=== PATIENT | female | born 1935 | race Hispanic/Latino ===

== ENCOUNTER 2018-10-04 05:52 | Day surgery (SDC) | payer MEDICARE ==
[2018-10-01 13:47] VITALS: BP 138/82
[2018-10-01 13:57] LABS: BASOPHILS % (AUTO) 0.5 % (0.0-5.0); EOSINOPHILS % (AUTO) 2.3 % (0.0-8.0); HEMATOCRIT 34.2 % (36-48); LYMPHOCYTES % (AUTO) 20.4 % (21.0-51.0); MEAN CORPUSCULAR HEMOGLOBIN 30.8 pg (27.0-33.0); MEAN CORPUSCULAR HGB CONC 33.8 g/dL (32.0-36.0); MEAN CORPUSCULAR VOLUME 91.1 fL (79-99); MONOCYTES % (AUTO) 7.2 % (3.0-13.0); NEUTROPHILS % (AUTO) 69.6 % (40.0-77.0); PLATELET COUNT (AUTO) 305 K/uL (130-400); RED BLOOD CELL COUNT(AUTO) 3.76 MIL/uL (4.00-5.50); RED CELL DISTRIBUTION WIDTH 13.4 % (11.0-15.5); WHITE BLOOD COUNT (AUTO) 9.7 K/uL (4.8-10.8)
[2018-10-01 14:03] LABS: CREATININE 1.6 mg/dL (0.5-1.5); POTASSIUM 4.4 mmol/L (3.5-5.1)
[2018-10-01 14:19] LABS: INR 0.97 (0.85-1.15); PARTIAL THROMBOPLASTIN TIME 28.1 SEC (26.3-35.5); PROTHROMBIN TIME 10.2 SEC (9.6-11.6)
[2018-10-01 14:37] LABS: APPEARANCE,URINE Cloudy (CLEAR); BILIRUBIN,URINE Negative (NEGATIVE); COLOR,URINE Yellow (YELLOW); GLUCOSE, URINE (UA) Negative (NEGATIVE); KETONES,URINE Negative (NEGATIVE); LEUKOCYTE ESTERASE ,URINE Moderate (NEGATIVE); NITRATE,URINE Negative (NEGATIVE); OCCULT BLOOD,URINE Small (NEGATIVE); PROTEIN,URINE POS 1+ mg/dL (NEGATIVE)
[2018-10-01 14:59] LABS: BACTERIA,URINE Few /HPF (None Seen); RBC,URINE None Seen /HPF (0-1)
[2018-10-01 15:00] LABS: SQUAMOUS EPITHELIAL CELL,UR 0-2 /HPF (0-2)
--- NOTE | 2018-10-01 15:21 | NUR ---
ABNORMAL LABS REPORTED ABNORMAL LABS TO HENRY JOHNSON NP. NO HYDRATION, NO NEW ORDERS
[~2018-10-04] VITALS: Ht 152.4 cm; Wt 89.5 kg
[2018-10-04] VITALS (10 sets, daily range): BP systolic 106–156; BP diastolic 38–73
[~2018-10-04 05:52] MED LIST: BUME1TAB6 PO; GLIM2TAB3 PO; SIMV20TA6 PO; SITA100T12 PO; VERA120T13 PO
--- NOTE | 2018-10-04 06:25 | NUR ---
PRE-PROCEDURE RECEIVED FROM HOME TO DAY 15 FOR SCHEDULED RT AND LT HEART CATH. CONNECTED TO CONTINUOUS CARDIOPULMONARY MONITORING. AWAKE IN NO ACUTE DISTRESS. DENIES PAIN OR SOA. MURMUR AUSCULTATED. SIDE RAILS UP X2, BED IN LOWEST POSITION, CALL LIGHT W/IN REACH.
[2018-10-04] MEDS ORDERED: IOHEXOL-350 50ML VIAL IV ONE (07:11)
[2018-10-04] MEDS ORDERED: IOHEXOL 350 MG/ML 100ML INFUS..BTL IV ONE (07:11)
[2018-10-04] MEDS ORDERED: HEPARIN SODIUM 1000UNIT/ML 10ML VIAL ONE (07:11)
[2018-10-04] MEDS ORDERED: LIDOCAINE HCL 2% 20ML ONE (07:11)
[2018-10-04] MEDS ORDERED: NITROGLYCERIN 5 MG/ML 10 ML VIAL IV ONE (07:11)
--- NOTE | 2018-10-04 07:18 | NUR ---
PROCEDURE PT TRANSFERRED TO [facility] [employer] VIA BED BY MAAME JIANG RN. AWAKE IN NO ACUTE DISTRESS.
[2018-10-04] MEDS ORDERED: HYDRALAZINE HCL 20 MG/ML VIAL ONE (07:43)
[2018-10-04] MEDS ORDERED: SODIUM CHLORIDE 0.9% 1000ML 1,000 ML IV SCH (08:00)
[2018-10-04] MEDS ORDERED: GLUCAGON 1MG KIT 1 MG ML IM PRN (08:30)
[2018-10-04] MEDS ORDERED: DEXTROSE 50%-WATER 50 ML DISP.SYRIN IV PRN (08:30)
--- NOTE | 2018-10-04 08:42 | NUR ---
POST-PROCEDURE RECEIVED FROM MANAGEMENT TRAINEE MARKETING S/P RT AND LT HEART CATH VIA BED BY MAAME JIANG RN. CONNECTED TO CONTINUOUS CARDIOPULMONARY MONITORING. AWAKE IN NO ACUTE DISTRESS. CATH SITE W/O SIGNS OF BLEEDING, DRESSING CLEAN, DRY, AND INTACT; SITE SOFT, NON-TENDER. SIDE RAILS UP X2, BED IN LOWEST POSITION, CALL LIGHT W/IN REACH. REINFORCED TEACHING IN OCCITAN ON IMPORTANCE OF KEEPING RIGHT LEG STRAIGHT AND NOT TO MOVE, NOT RAISE HEAD AND UP AND DOWN. PT VERBALIZED UNDERSTANDING.
--- NOTE | 2018-10-04 11:45 | NUR ---
ACTIVITY UP TO CHAIR WITH ASSIST X2. TOLERATED W/O COMPLICATIONS. CATH SITE W/O SIGNS OF BLEEDING. DRESSING CLEAN, DRY, AND INTACT/SITE SOFT, NON-TENDER.
--- NOTE | 2018-10-04 14:45 | NUR ---
REPORT REPORT GIVEN TO DAGMAR CHILDS USING SBAR/VERBALIZED UNDERSTANDING. CATH SITE W/O SIGNS OF BLEEDING. SITE SOFT, NON-TENDER, DRESSING CLEAN, DRY, AND INTACT. PENDING DR. SANDHU CONSULT.
== END 2018-10-04 15:55 | disposition home or self-care (01) ==
LOC: DAH 05:52
PROVIDERS: ATTEND Internal Medicine Cardiovascular Disease
DX: I25.10 Atherosclerotic heart disease of native coronary artery without angina pectoris (principal); I35.0 Nonrheumatic aortic (valve) stenosis; I34.0 Nonrheumatic mitral (valve) insufficiency; I42.8 Other cardiomyopathies; E11.9 Type 2 diabetes mellitus without complications; I11.9 Hypertensive heart disease without heart failure; E78.5 Hyperlipidemia, unspecified; Z79.84 Long term (current) use of oral hypoglycemic drugs; Z79.899 Other long term (current) drug therapy; Z82.49 Family history of ischemic heart disease and other diseases of the circulatory system; Z83.3 Family history of diabetes mellitus
CPT/HCPCS: 36415; 71045; 80048; 81001; 82948 ×2; 85025; 85610; 85730; 93005; 93454; A4606; C1760; C1769; C1894 ×2; J0360; J1644; J3490 ×2; J7030; Q9965; Q9967 ×2

== ENCOUNTER 2019-10-20 20:53 | Emergency (ER) | payer MEDICARE ==
[~2019-10-20 20:53] MED LIST changes: +ACET-2247 PO; +ALBU8.5H8 IH; +ALPR0.5T PO; +ASCO500T10 PO; +ASPI-1026 PO; +ATOR20TA65 PO; +AUD IH; +BENZ-17 PO; -BUME1TAB6 PO; +BUME1TAB7 PO; +CEFD300C3 PO; +DOCU-116 PO; +FERR-82 PO; -GLIM2TAB3 PO; +GLIM2TAB30 PO; +INSU100I3 SQ; +METO25TA6 PO; +POTA20LI PO; -SIMV20TA6 PO; +TYL3 PO; +[UNRECOGNIZED DRUG - OTHER] PO
[2019-10-20 21:46] LABS: BASOPHILS % (AUTO) 0.3 % (0.0-5.0); EOSINOPHILS % (AUTO) 2.6 % (0.0-8.0); HEMATOCRIT 33.3 % (36-48); LYMPHOCYTES % (AUTO) 20.2 % (21.0-51.0); MEAN CORPUSCULAR HEMOGLOBIN 29.2 pg (27.0-33.0); MEAN CORPUSCULAR HGB CONC 31.5 g/dL (32.0-36.0); MEAN CORPUSCULAR VOLUME 92.5 fL (79-99); MONOCYTES % (AUTO) 8.4 % (3.0-13.0); NEUTROPHILS % (AUTO) 68.1 % (40.0-77.0); PLATELET COUNT (AUTO) 244 K/uL (130-400); RED CELL DISTRIBUTION WIDTH 13.8 % (11.0-15.5); WHITE BLOOD COUNT (AUTO) 11.6 K/uL (4.8-10.8)
[2019-10-20 22:03] LABS: POTASSIUM 4.3 mmol/L (3.5-5.1)
[2019-10-20 22:07] LABS: ALBUMIN 3.1 g/dL (3.5-5.0); BILIRUBIN,TOTAL 0.2 mg/dL (0.2-1.0); TOTAL PROTEIN, SERUM 7.1 g/dL (6.0-8.3)
[2019-10-20 22:10] LABS: INR 0.93 (0.85-1.15); PARTIAL THROMBOPLASTIN TIME 26.8 SEC (26.3-35.5); PROTHROMBIN TIME 10.1 SEC (9.6-11.6)
[2019-10-20 22:17] LABS: APPEARANCE,URINE CLOUDY (CLEAR); BILIRUBIN,URINE NEGATIVE (NEGATIVE); COLOR,URINE YELLOW (YELLOW); GLUCOSE, URINE (UA) NEGATIVE (NEGATIVE); KETONES,URINE NEGATIVE (NEGATIVE); LEUKOCYTE ESTERASE ,URINE NEGATIVE (NEGATIVE); NITRATE,URINE NEGATIVE (NEGATIVE); OCCULT BLOOD,URINE MODERATE (NEGATIVE); PH,URINE 5.5 (5.0-8.0); PROTEIN,URINE 100 mg/dL (NEGATIVE); UROBILINOGEN,URINE 0.2 mg/dL (0.2-1.0)
[2019-10-20 22:47] LABS: AMORPHOUS SEDIMENT,UR Moderate /LPF (None Seen); BACTERIA,URINE Moderate /HPF (None Seen); RBC,URINE 26-50 /HPF (0-1)
[2019-10-20] MEDS ORDERED: LISINOPRIL 5 MG TABLET ONE (23:56)
== END 2019-10-21 01:14 | disposition home or self-care (01) ==
LOC: EDH 20:53
DX: N39.0 Urinary tract infection, site not specified (principal); N30.91 Cystitis, unspecified with hematuria; K21.9 Gastro-esophageal reflux disease without esophagitis; I10 Essential (primary) hypertension; E11.9 Type 2 diabetes mellitus without complications
CPT/HCPCS: 36415; 51701; 80053; 81001; 82550; 83605; 84484; 85025; 85610; 85730; 87077; 87088; 87186; 93005; 96374

== ENCOUNTER 2019-11-22 15:12 | Inpatient (IN) | payer MEDICARE ==
[~2019-11-22] VITALS: Ht 154.9 cm; Wt 81.9 kg
[2019-11-22] MEDS ORDERED: ONDANSETRON HCL 4 MG/2 ML VIAL ONE (15:32)
[2019-11-22] MEDS ORDERED: MORPHINE SULFATE 4 MG/1ML SYG ONE ×2 (15:33→16:11)
[2019-11-22 16:16] LABS: BASOPHILS % (AUTO) 0.2 % (0.0-5.0); EOSINOPHILS % (AUTO) 2.7 % (0.0-8.0); HEMATOCRIT 32.9 % (36-48); LYMPHOCYTES % (AUTO) 18.5 % (21.0-51.0); MEAN CORPUSCULAR HEMOGLOBIN 28.5 pg (27.0-33.0); MEAN CORPUSCULAR HGB CONC 32.5 g/dL (32.0-36.0); MEAN CORPUSCULAR VOLUME 87.7 fL (79-99); MONOCYTES % (AUTO) 6.2 % (3.0-13.0); NEUTROPHILS % (AUTO) 71.8 % (40.0-77.0); PLATELET COUNT (AUTO) 207 K/uL (130-400); RED BLOOD CELL COUNT(AUTO) 3.75 MIL/uL (4.00-5.50); RED CELL DISTRIBUTION WIDTH 12.8 % (11.0-15.5); WHITE BLOOD COUNT (AUTO) 10.6 K/uL (4.8-10.8)
[2019-11-22 16:26] LABS: INR 0.89 (0.85-1.15); PARTIAL THROMBOPLASTIN TIME 25.2 SEC (26.3-35.5); PROTHROMBIN TIME 9.7 SEC (9.6-11.6)
[2019-11-22 16:29] LABS: ALBUMIN 2.8 g/dL (3.5-5.0); BILIRUBIN,TOTAL 0.4 mg/dL (0.2-1.0); CREATININE 1.7 mg/dL (0.5-1.5); POTASSIUM 4.3 mmol/L (3.5-5.1); TOTAL PROTEIN, SERUM 6.5 g/dL (6.0-8.3)
[2019-11-22] MEDS ORDERED: LORAZEPAM 2 MG/ML 1 ML VIAL ONE (16:31)
[2019-11-22 16:35] LABS: APPEARANCE,URINE Clear (CLEAR); BILIRUBIN,URINE Negative (NEGATIVE); COLOR,URINE Yellow (YELLOW); GLUCOSE, URINE (UA) 500 mg/dL (NEGATIVE); KETONES,URINE Negative (NEGATIVE); LEUKOCYTE ESTERASE ,URINE Small (NEGATIVE); NITRATE,URINE Negative (NEGATIVE); OCCULT BLOOD,URINE Negative (NEGATIVE); PH,URINE 5.5 (5.0-8.0); PROTEIN,URINE POS 2+ mg/dL (NEGATIVE); UROBILINOGEN,URINE 0.2 mg/dL (0.2-1.0)
[2019-11-22] MEDS ORDERED: MORPHINE SULFATE 2 MG/ML 1ML SYG IV PRN (16:45)
[2019-11-22] MEDS ORDERED: NITROGLYCERIN 0.4 MG SL TAB SL PRN (16:45)
[2019-11-22] MEDS ORDERED: ONDANSETRON HCL 4 MG/2 ML VIAL IV PRN (16:45)
[2019-11-22] MEDS ORDERED: HYDRALAZINE HCL 20 MG/ML VIAL IV PRN (16:45)
[2019-11-22] MEDS ORDERED: INSULIN HUMULIN R 100 UNIT/ML 3ML ONE ×2 (17:06→22:33)
[2019-11-22 17:15] LABS: BACTERIA,URINE Many /HPF (None Seen); RBC,URINE None Seen /HPF (0-1); SQUAMOUS EPITHELIAL CELL,UR 0-2 /HPF (0-2)
[2019-11-22] MEDS ORDERED: MORPHINE SULFATE 2 MG/ML 1ML SYG ONE (19:59)
[2019-11-22] MEDS: INSULIN HUMULIN R 100 UNIT/ML 3ML SQ SCH (21:00)
[2019-11-22] MEDS ORDERED: HEPARIN SODIUM 5000UNIT/ML 1ML VIAL SQ SCH (21:00)
[2019-11-22] MEDS ORDERED: HEPARIN SODIUM 5000UNIT/ML 1ML VIAL ONE (21:41)
[2019-11-22] MEDS ORDERED: FAMOTIDINE/PF 20 MG/2 ML VIAL IV ONE (21:42)
[2019-11-22 23:15] VITALS: BP 193/79
[2019-11-22] MEDS: MORPHINE SULFATE 4 MG/1ML SYG IV PRN (23:41)
[2019-11-23 00:05] VITALS: BP 137/62
[2019-11-23 04:00] VITALS: BP 172/71
[2019-11-23 05:48] LABS: BASOPHILS % (AUTO) 0.2 % (0.0-5.0); EOSINOPHILS % (AUTO) 0.2 % (0.0-8.0); HEMATOCRIT 31.2 % (36-48); LYMPHOCYTES % (AUTO) 13.5 % (21.0-51.0); MEAN CORPUSCULAR HEMOGLOBIN 28.8 pg (27.0-33.0); MEAN CORPUSCULAR HGB CONC 31.7 g/dL (32.0-36.0); MEAN CORPUSCULAR VOLUME 90.7 fL (79-99); MONOCYTES % (AUTO) 7.5 % (3.0-13.0); PLATELET COUNT (AUTO) 190 K/uL (130-400); RED BLOOD CELL COUNT(AUTO) 3.44 MIL/uL (4.00-5.50); RED CELL DISTRIBUTION WIDTH 13.1 % (11.0-15.5); WHITE BLOOD COUNT (AUTO) 12.6 K/uL (4.8-10.8)
[2019-11-23 06:07] LABS: CREATININE 1.9 mg/dL (0.5-1.5); POTASSIUM 4.2 mmol/L (3.5-5.1)
[2019-11-23] MEDS: INSULIN HUMULIN R 100 UNIT/ML 3ML SQ SCH ×4 (06:25→19:55)
[2019-11-23 07:30] VITALS: BP 156/65
[2019-11-23 11:00] VITALS: BP 153/71
[2019-11-23] MEDS: FAMOTIDINE 20MG TAB 20 MG TAB PO SCH (11:08)
[2019-11-23] MEDS: MORPHINE SULFATE 4 MG/1ML SYG IV PRN (11:59)
[2019-11-23] MEDS ORDERED: CEFTRIAXONE SODIUM 1 GM IVP SCH (12:45)
[2019-11-23] MEDS: SODIUM CHLORIDE 0.9% 1000ML 1,000 ML IV SCH (13:48)
[2019-11-23] MEDS: MEROPENEM 500 MG VIAL IVP SCH (13:48)
[2019-11-23] MEDS ORDERED: HYDROMORPHONE HCL 0.5 MG/0.5 ML ML ONE (13:49)
[2019-11-23] MEDS ORDERED: HEPARIN SODIUM 5000UNIT/ML 1ML VIAL SQ SCH (14:00)
--- NOTE | 2019-11-23 14:39 | NUR ---
AMRIT- SPOKE TO R FOR DC PLANNING DAUGHTER STATES PATIENT LIVES IN A ONE BEDROOM APT AND ANOTHER SISTER HAS COME FROM [facility] STAY WITH HER AND CARE FOR HER. PT NO LONGER IS AMBULATORY, IS WHEELCHAIR BOUND ALL THE TIMES BUT CAN HELP TO TRANSFER W/CHAIR TO BED TO SHOWER CHAIR. PROVIDER SERVICES 28 HRS PER WEEK, NO STAIRS IN THE HOME. DR. DOUGLASS IS PCP, SAW A FEW WEEKS AGO. WAS AT [facility] FOR 4 WEEKS, HOME FOR ONE MONTH. FAMILY WOULD LIKE RETURN TO [facility] ON DISCHARGE. VERBAL ALEKSANDAR FOR [facility] AND SENT TO FACILITY TO CHECK INSURANCE BENEFITS PRIOR TO FURTHER PLANNING. CM TO FOLLOW Addendum: 11/23/19 at 1445 by TRACE STACY RN CM Amended: Links added.
[2019-11-23] MEDS ORDERED: HYDROMORPHONE 1 MG/1 ML AMP IVP ONE (15:00)
--- NOTE | 2019-11-23 15:00 | NUR ---
NOTE HAVE SPOKE TO DR ZARATE AND INFORMED HIM ABOUT PATIENT BEING CLEARED FOR SURGERY BY CARDIOLOGY AND PRIMARY MD. HE SAID PATIENT WILL HAVE SURGERY TOMORROW AT NOON BUT DID NOT GIVE ME ORDERS. HE WAS GIVEN THE DAUGHTER;S PHONE NUMBER HE WILL CALL HER.
[2019-11-23 16:00] VITALS: BP 114/48
[2019-11-23 20:00] VITALS: BP 135/57
--- NOTE | 2019-11-23 20:00 | NUR ---
ASSESSMENT PATIENT AWAKE, ALERT, OX1, NO SOB, NO C/O PAIN, NPO POST MIDNITE ORDERED FOR POSSIBLE SURGERY, F.C TO GRAVITY DRAINAGE WITH CLOUDY OUTPUT
[2019-11-23] MEDS: HYDROMORPHONE HCL 0.5 MG/0.5 ML ML IVP PRN (21:16)
[2019-11-24] VITALS (26 sets, daily range): BP systolic 120–170; BP diastolic 49–97
[2019-11-24] MEDS: MEROPENEM 500 MG VIAL IVP SCH ×2 (00:24→12:44)
[2019-11-24 04:57] LABS: BASOPHILS % (AUTO) 0.1 % (0.0-5.0); HEMATOCRIT 27.4 % (36-48); LYMPHOCYTES % (AUTO) 10.4 % (21.0-51.0); MEAN CORPUSCULAR HEMOGLOBIN 29.3 pg (27.0-33.0); MEAN CORPUSCULAR HGB CONC 32.5 g/dL (32.0-36.0); MEAN CORPUSCULAR VOLUME 90.1 fL (79-99); MONOCYTES % (AUTO) 10.7 % (3.0-13.0); PLATELET COUNT (AUTO) 170 K/uL (130-400); RED BLOOD CELL COUNT(AUTO) 3.04 MIL/uL (4.00-5.50); RED CELL DISTRIBUTION WIDTH 13.4 % (11.0-15.5)
[2019-11-24 05:25] LABS: % IRON SATURATION 7.5 % (22-44)
[2019-11-24 05:26] LABS: CREATININE 2.3 mg/dL (0.5-1.5); MAGNESIUM 1.3 mg/dL (1.80-2.40); PHOSPHORUS 4.3 mg/dL (2.5-4.9); URIC ACID 9.1 mg/dL (2.6-7.2)
[2019-11-24 06:12] LABS: HEMOGLOBIN A1C 10.8 % (4.0-6.0)
[2019-11-24] MEDS: INSULIN HUMULIN R 100 UNIT/ML 3ML SQ SCH ×4 (06:46→21:00)
[2019-11-24] MEDS: HYDROMORPHONE HCL 0.5 MG/0.5 ML ML IVP PRN ×2 (07:31→23:02)
[2019-11-24] MEDS: FAMOTIDINE 20MG TAB 20 MG TAB PO SCH (09:00)
[2019-11-24] MEDS: SODIUM CHLORIDE 0.9% 1000ML 1,000 ML IV SCH (09:18)
[2019-11-24] MEDS ORDERED: INSULIN GLARGINE 100 UNITS/ML 10 ML VIAL SQ SCH (10:00)
[2019-11-24] MEDS ORDERED: MEPERIDINE-PF 25 MG/ML SYG ONE ×2 (12:56→14:38)
[2019-11-24] MEDS ORDERED: SUCCINYLCHOLINE CHLORIDE 20 MG/ML 10 ML VIAL ONE (13:19)
[2019-11-24] MEDS ORDERED: LIDOCAINE PF 2% 5ML ABBOJECT ONE (13:19)
[2019-11-24] MEDS ORDERED: GLYCOPYRROLATE 1 MG/5 ML SYRINGE ONE (13:20)
[2019-11-24] MEDS ORDERED: DEXAMETHASONE SOD PHOSPHATE 10MG/ML 1ML VIAL ONE (13:20)
[2019-11-24] MEDS ORDERED: NEOSTIGMINE 5MG/5ML SYR IV ONE (13:20)
[2019-11-24] MEDS ORDERED: ONDANSETRON HCL 4 MG/2 ML VIAL ONE (13:20)
[2019-11-24] MEDS ORDERED: PROPOFOL 10 MG/ML 20ML VIAL IV ONE (13:20)
[2019-11-24] MEDS ORDERED: ROCURONIUM 10MG/1ML SYR 10 MG/ML ML ONE (13:21)
[2019-11-24] MEDS ORDERED: FENTANYL CITRATE PF 50 MCG/1 ML 2ML VIAL ONE (13:21)
[2019-11-24] MEDS ORDERED: EPHEDRINE SULFATE 50 MG/ML AMPULE ONE (13:43)
[2019-11-24] MEDS: INSULIN LISPRO 100 UNIT/ML 3ML SQ SCH (16:55)
[2019-11-24] MEDS ORDERED: INSULIN HUMULIN R 100 UNIT/ML 3ML SQ SCH ×2 (18:00)
--- NOTE | 2019-11-24 19:45 | NUR ---
PATIENT RECEIVED IN BED, ALERT TO SELF ONLY, REORIENTED TO PLACE AND TIME. PT IS POST RIGHT HIP NAILING POST RIGHT HIP FRACTURE. DRESSING IS D/I, PERIPHERAL PULSES PALPABLE. PT WITH F/C DRAINING TO GRAVITY WITH SHANE COLORED URINE. O2 3 LITERS VIA NC. PATIENT KEEP MOANING YET DENIES PAIN. PER REPORT PATIENT HAS BEEN DOING THAT SINCE YESTERDAY. PATIENT DOES FOLLOW COMMANDS WELL. NS AT 50 ML/HR. SR UP X4, CALL [facility] IS WITHIN REACH. WILL CONT TO MONITOR CLOY. TELE WITH SR 95.
[2019-11-24] MEDS: IRON SUCROSE COMPLEX 300 MG in SODIUM CHLORIDE 0.9% 250 ML IV SCH (20:40)
[2019-11-24] MEDS: INSULIN GLARGINE 100 UNITS/ML 10 ML VIAL SQ SCH (21:00)
--- NOTE | 2019-11-24 21:00 | NUR ---
PATIENT DID NOT HAVE DINNER, PATIENT IS ON CLEAR LIQUIDS. PM INSULIN NOT ADMINISTERED D/T SKIPPING A MEAL. WILL CONT TO MONITOR CLOSELY.
[2019-11-25] MEDS: MEROPENEM 500 MG VIAL IVP SCH ×2 (02:06→12:31)
[2019-11-25] MEDS: HYDROMORPHONE HCL 0.5 MG/0.5 ML ML IVP PRN ×2 (03:21→13:06)
[2019-11-25] MEDS: SODIUM CHLORIDE 0.9% 1000ML 1,000 ML IV SCH (03:21)
--- NOTE | 2019-11-25 03:26 | NUR ---
PATIENT CONT WITH THE MOANING, AT THIS TIME SHE DOES C/O PAIN TO SX SIDE. PRN MEDICATION ADMINISTERED. PT HAS BEEN NOTED TO COUGH, WITH FREQUENT THROAT CLEARING AFTER THIN LIQUIDS. SHE IS CONSTANTLY ASKING FOR H20. SPEECH EVALUATION HAS BEEN ORDERED PER [place]. WILL CONT TO MONITOR PT CLOSELY.
[2019-11-25 04:00] VITALS: BP 164/71
[2019-11-25 05:05] LABS: HEMATOCRIT 25.6 % (36-48); MEAN CORPUSCULAR HEMOGLOBIN 28.2 pg (27.0-33.0); MEAN CORPUSCULAR HGB CONC 30.5 g/dL (32.0-36.0); MEAN CORPUSCULAR VOLUME 92.4 fL (79-99); RED BLOOD CELL COUNT(AUTO) 2.77 MIL/uL (4.00-5.50); RED CELL DISTRIBUTION WIDTH 13.3 % (11.0-15.5); WHITE BLOOD COUNT (AUTO) 15.7 K/uL (4.8-10.8)
[2019-11-25 05:27] LABS: POTASSIUM 4.1 mmol/L (3.5-5.1)
[2019-11-25] MEDS: INSULIN HUMULIN R 100 UNIT/ML 3ML SQ SCH ×4 (05:29→20:26)
--- NOTE | 2019-11-25 06:53 | NUR ---
NILES FRANKEL NP UPDATED ON STATUS. NEW ORDERS FOR PAIN CONTROL RECEIVED.
[2019-11-25 08:33] VITALS: BP 124/94
[2019-11-25] MEDS: INSULIN LISPRO 100 UNIT/ML 3ML SQ SCH ×3 (08:34→16:52)
[2019-11-25] MEDS: FAMOTIDINE 20MG TAB 20 MG TAB PO SCH (08:35)
[2019-11-25] MEDS: IRON SUCROSE COMPLEX 300 MG in SODIUM CHLORIDE 0.9% 250 ML IV SCH (08:59)
[2019-11-25] MEDS: DOCUSATE SODIUM 100 MG CAP PO SCH ×2 (09:07→21:22)
[2019-11-25] MEDS: METOPROLOL TARTRATE 25 MG TAB PO SCH (09:07)
[2019-11-25] MEDS: BUMETANIDE 1 MG TAB PO SCH (09:07)
[2019-11-25] MEDS: POTASSIUM CHLORIDE 20 MEQ ERTAB PO SCH (09:07)
[2019-11-25] MEDS: HYDROCODONE/ACETAMINOPHEN 5/325 MG TAB PO PRN (09:08)
--- NOTE | 2019-11-25 10:30 | NUR ---
DYSPHAGIA EVAL COMPLETED. -S/S OF ASPIRATION. RECOMMEND MECHANICAL SOFT/GROUND, THIN LIQUIDS; PILLS WHOLE WITH LIQUIDS. Addendum: 11/25/19 at 1157 by EMERSON RUBALCAVA, [facility] Amended: Links added.
[2019-11-25 11:27] VITALS: BP 136/84
[2019-11-25] MEDS ORDERED: MAGNESIUM 2GM PREMIX 50ML 50 ML IV SCH (12:00)
[2019-11-25] MEDS ORDERED: COMPOUND IV MISC 1 EACH IVSOLN MISC PRN (13:00)
[2019-11-25] MEDS ORDERED: INSULIN GLARGINE 100 UNITS/ML 10 ML VIAL SQ ONE (13:30)
[2019-11-25] MEDS ORDERED: IRON SUCROSE COMPLEX 400 MG in SODIUM CHLORIDE 0.9% 250 ML IV SCH (14:00)
--- NOTE | 2019-11-25 16:00 | NUR ---
REFERRAL SENT TO WNR TODAY- WILL EVALUATE- PT NOTES FOR ABIILITY TO PARTICIPATE IN PHYSICAL THERAPY. POSSIBLE ADMIT WITH MEDICAID PENDING EXPECT Thu OR THURSDAY. MARY LAMA TEST ALREADY SENT IN REFERRAL PKT Addendum: 11/25/19 at 1905 by TRACE STACY RN CM Amended: Links added.
[2019-11-25 16:32] VITALS: BP 124/56
[2019-11-25 19:10] VITALS: BP 159/56
[2019-11-25] MEDS: INSULIN GLARGINE 100 UNITS/ML 10 ML VIAL SQ SCH (21:00)
[2019-11-25] MEDS: ATORVASTATIN CALCIUM 20 MG TABLET PO SCH (21:22)
[2019-11-25 23:34] VITALS: BP 170/63
[2019-11-26] VITALS (7 sets, daily range): BP systolic 127–181; BP diastolic 43–83
[2019-11-26] MEDS: MEROPENEM 500 MG VIAL IVP SCH ×2 (00:55→12:09)
[2019-11-26 06:11] LABS: HEMATOCRIT 23.8 % (36-48); MEAN CORPUSCULAR HEMOGLOBIN 28.7 pg (27.0-33.0); MEAN CORPUSCULAR HGB CONC 31.9 g/dL (32.0-36.0); MEAN CORPUSCULAR VOLUME 89.8 fL (79-99); NUCLEATED RED BLOOD CELLS 0.2 % (0.0-0.19); RED BLOOD CELL COUNT(AUTO) 2.65 MIL/uL (4.00-5.50); RED CELL DISTRIBUTION WIDTH 13.2 % (11.0-15.5); WHITE BLOOD COUNT (AUTO) 15.4 K/uL (4.8-10.8)
[2019-11-26] MEDS: INSULIN HUMULIN R 100 UNIT/ML 3ML SQ SCH ×4 (06:31→20:39)
[2019-11-26 06:34] LABS: POTASSIUM 3.9 mmol/L (3.5-5.1)
[2019-11-26] MEDS: INSULIN LISPRO 100 UNIT/ML 3ML SQ SCH ×3 (08:21→16:39)
[2019-11-26] MEDS: IRON SUCROSE COMPLEX 400 MG in SODIUM CHLORIDE 0.9% 250 ML IV SCH (09:11)
[2019-11-26] MEDS: FAMOTIDINE 20MG TAB 20 MG TAB PO SCH (09:12)
[2019-11-26] MEDS: POTASSIUM CHLORIDE 20 MEQ ERTAB PO SCH (09:13)
[2019-11-26] MEDS: DOCUSATE SODIUM 100 MG CAP PO SCH ×2 (09:13→20:39)
[2019-11-26] MEDS: METOPROLOL TARTRATE 25 MG TAB PO SCH (09:13)
[2019-11-26] MEDS: BUMETANIDE 1 MG TAB PO SCH (09:13)
[2019-11-26] MEDS: HYDROMORPHONE HCL 0.5 MG/0.5 ML ML IVP PRN (11:12)
[2019-11-26 11:16] LABS: HEMATOCRIT 24.5 % (36-48)
[2019-11-26] MEDS ORDERED: EPOETIN ALFA 10,000 UNIT/ML VIAL SQ SCH (13:00)
[2019-11-26 17:23] LABS: HEMATOCRIT 25.2 % (36-48)
[2019-11-26] MEDS ORDERED: COMPOUND IV REFRIGERATED 1 EACH IVSOLN MISC PRN (17:45)
[2019-11-26] MEDS: INSULIN GLARGINE 100 UNITS/ML 10 ML VIAL SQ SCH (20:38)
[2019-11-26] MEDS: ATORVASTATIN CALCIUM 20 MG TABLET PO SCH (20:39)
[2019-11-26] MEDS: HYDROCODONE/ACETAMINOPHEN 5/325 MG TAB PO PRN (20:59)
[2019-11-27] VITALS (7 sets, daily range): BP systolic 134–187; BP diastolic 47–88
[2019-11-27] MEDS: MEROPENEM 500 MG VIAL IVP SCH ×2 (01:54→13:57)
[2019-11-27] MEDS: INSULIN HUMULIN R 100 UNIT/ML 3ML SQ SCH ×4 (05:52→20:55)
[2019-11-27 05:55] LABS: BASOPHILS % (AUTO) 0.2 % (0.0-5.0); EOSINOPHILS % (AUTO) 3.2 % (0.0-8.0); HEMATOCRIT 23.8 % (36-48); LYMPHOCYTES % (AUTO) 16.6 % (21.0-51.0); MEAN CORPUSCULAR HEMOGLOBIN 28.7 pg (27.0-33.0); MEAN CORPUSCULAR HGB CONC 31.9 g/dL (32.0-36.0); MEAN CORPUSCULAR VOLUME 89.8 fL (79-99); MONOCYTES % (AUTO) 9.2 % (3.0-13.0); NEUTROPHILS % (AUTO) 68.4 % (40.0-77.0); NUCLEATED RED BLOOD CELLS 0.3 % (0.0-0.19); PLATELET COUNT (AUTO) 198 K/uL (130-400); RED BLOOD CELL COUNT(AUTO) 2.65 MIL/uL (4.00-5.50); RED CELL DISTRIBUTION WIDTH 13.4 % (11.0-15.5); WHITE BLOOD COUNT (AUTO) 12.2 K/uL (4.8-10.8)
[2019-11-27 06:18] LABS: CREATININE 1.9 mg/dL (0.5-1.5); POTASSIUM 3.8 mmol/L (3.5-5.1)
[2019-11-27] MEDS: INSULIN LISPRO 100 UNIT/ML 3ML SQ SCH ×3 (08:19→17:00)
[2019-11-27] MEDS: METOPROLOL TARTRATE 25 MG TAB PO SCH (08:21)
[2019-11-27] MEDS: IRON SUCROSE COMPLEX 400 MG in SODIUM CHLORIDE 0.9% 250 ML IV SCH (08:21)
[2019-11-27] MEDS: FAMOTIDINE 20MG TAB 20 MG TAB PO SCH (08:21)
[2019-11-27] MEDS: POTASSIUM CHLORIDE 20 MEQ ERTAB PO SCH (08:21)
[2019-11-27] MEDS: BUMETANIDE 1 MG TAB PO SCH (08:21)
[2019-11-27] MEDS: DOCUSATE SODIUM 100 MG CAP PO SCH ×2 (08:21→20:45)
[2019-11-27] MEDS: HYDROCODONE/ACETAMINOPHEN 5/325 MG TAB PO PRN ×2 (11:42→20:54)
[2019-11-27] MEDS: ATORVASTATIN CALCIUM 20 MG TABLET PO SCH (20:45)
[2019-11-27] MEDS ORDERED: INSULIN GLARGINE 100 UNITS/ML 10 ML VIAL SQ SCH (21:00)
[2019-11-28] MEDS: MEROPENEM 500 MG VIAL IVP SCH ×2 (01:16→13:48)
[2019-11-28 03:42] VITALS: BP 158/58
[2019-11-28] MEDS: HYDROCODONE/ACETAMINOPHEN 5/325 MG TAB PO PRN ×3 (04:54→21:04)
[2019-11-28 05:28] LABS: BASOPHILS % (AUTO) 0.4 % (0.0-5.0); EOSINOPHILS % (AUTO) 4.6 % (0.0-8.0); HEMATOCRIT 25.8 % (36-48); LYMPHOCYTES % (AUTO) 18.2 % (21.0-51.0); MEAN CORPUSCULAR HGB CONC 32.2 g/dL (32.0-36.0); MEAN CORPUSCULAR VOLUME 90.2 fL (79-99); MONOCYTES % (AUTO) 10.7 % (3.0-13.0); NEUTROPHILS % (AUTO) 61.2 % (40.0-77.0); NUCLEATED RED BLOOD CELLS 0.6 % (0.0-0.19); PLATELET COUNT (AUTO) 228 K/uL (130-400); RED BLOOD CELL COUNT(AUTO) 2.86 MIL/uL (4.00-5.50); RED CELL DISTRIBUTION WIDTH 13.4 % (11.0-15.5); WHITE BLOOD COUNT (AUTO) 11.8 K/uL (4.8-10.8)
[2019-11-28 06:19] LABS: CREATININE 1.9 mg/dL (0.5-1.5); POTASSIUM 3.9 mmol/L (3.5-5.1)
[2019-11-28] MEDS: INSULIN HUMULIN R 100 UNIT/ML 3ML SQ SCH ×4 (06:23→21:00)
[2019-11-28 08:11] VITALS: BP 142/54
[2019-11-28] MEDS: IRON SUCROSE COMPLEX 400 MG in SODIUM CHLORIDE 0.9% 250 ML IV SCH (08:38)
[2019-11-28] MEDS: DOCUSATE SODIUM 100 MG CAP PO SCH ×2 (08:39→21:04)
[2019-11-28] MEDS: BUMETANIDE 1 MG TAB PO SCH (08:39)
[2019-11-28] MEDS: FAMOTIDINE 20MG TAB 20 MG TAB PO SCH (08:39)
[2019-11-28] MEDS: POTASSIUM CHLORIDE 20 MEQ ERTAB PO SCH (08:40)
[2019-11-28] MEDS: INSULIN LISPRO 100 UNIT/ML 3ML SQ SCH ×3 (08:44→16:47)
[2019-11-28] MEDS: METOPROLOL TARTRATE 25 MG TAB PO SCH (08:45)
[2019-11-28 14:56] VITALS: BP 156/75
[2019-11-28] MEDS: HYDROMORPHONE HCL 0.5 MG/0.5 ML ML IVP PRN (16:39)
--- NOTE | 2019-11-28 17:30 | NUR ---
CM Note: WNR pending approval CM spoke to Trudy for [facility], received order, clinicals, PASRR, Covid transfer form, and covid result. Pt pending approval. EMS filled out pending to be faxed w/current date. Pt pending approval at this time. Primary nurse aware. CM to cont to follow up.
[2019-11-28 20:11] VITALS: BP 124/70
[2019-11-28] MEDS ORDERED: INSULIN GLARGINE 100 UNITS/ML 10 ML VIAL SQ SCH (21:00)
[2019-11-28] MEDS: ATORVASTATIN CALCIUM 20 MG TABLET PO SCH (21:04)
[2019-11-29 00:04] VITALS: BP_SYST 125; BP_SYST 179; BP_DIAS 64; BP_DIAS 81
[2019-11-29 03:42] LABS: BASOPHILS % (AUTO) 0.4 % (0.0-5.0); EOSINOPHILS % (AUTO) 2.3 % (0.0-8.0); HEMATOCRIT 27.4 % (36-48); LYMPHOCYTES % (AUTO) 17.5 % (21.0-51.0); MEAN CORPUSCULAR HEMOGLOBIN 28.5 pg (27.0-33.0); MEAN CORPUSCULAR HGB CONC 31.8 g/dL (32.0-36.0); MEAN CORPUSCULAR VOLUME 89.8 fL (79-99); MONOCYTES % (AUTO) 11.7 % (3.0-13.0); NEUTROPHILS % (AUTO) 62.4 % (40.0-77.0); NUCLEATED RED BLOOD CELLS 0.4 % (0.0-0.19); PLATELET COUNT (AUTO) 252 K/uL (130-400); RED BLOOD CELL COUNT(AUTO) 3.05 MIL/uL (4.00-5.50); RED CELL DISTRIBUTION WIDTH 13.9 % (11.0-15.5); WHITE BLOOD COUNT (AUTO) 16.7 K/uL (4.8-10.8)
[2019-11-29] MEDS: MEROPENEM 500 MG VIAL IVP SCH ×2 (03:42→12:45)
[2019-11-29] MEDS: HYDROMORPHONE HCL 0.5 MG/0.5 ML ML IVP PRN ×4 (03:43→22:34)
[2019-11-29 03:50] LABS: CREATININE 1.7 mg/dL (0.5-1.5); POTASSIUM 4.3 mmol/L (3.5-5.1)
[2019-11-29 04:09] VITALS: BP 181/94
[2019-11-29] MEDS: INSULIN HUMULIN R 100 UNIT/ML 3ML SQ SCH ×4 (07:30→20:18)
[2019-11-29] MEDS: IRON SUCROSE COMPLEX 400 MG in SODIUM CHLORIDE 0.9% 250 ML IV SCH (07:35)
[2019-11-29 08:32] VITALS: BP 148/84
[2019-11-29] MEDS: POTASSIUM CHLORIDE 20 MEQ ERTAB PO SCH (09:00)
[2019-11-29] MEDS: DOCUSATE SODIUM 100 MG CAP PO SCH ×2 (09:36→20:16)
[2019-11-29] MEDS: FAMOTIDINE 20MG TAB 20 MG TAB PO SCH (09:36)
[2019-11-29] MEDS: METOPROLOL TARTRATE 25 MG TAB PO SCH (09:36)
[2019-11-29] MEDS: BUMETANIDE 1 MG TAB PO SCH (09:36)
[2019-11-29] MEDS: INSULIN LISPRO 100 UNIT/ML 3ML SQ SCH ×3 (09:39→16:55)
[2019-11-29] MEDS ORDERED: PHARMACY COMMUNICATION MISC SCH (11:30)
[2019-11-29 11:34] VITALS: BP 114/55
[2019-11-29 16:15] VITALS: BP 176/83
[2019-11-29 20:02] VITALS: BP 142/50
[2019-11-29] MEDS: ATORVASTATIN CALCIUM 20 MG TABLET PO SCH (20:16)
[2019-11-29] MEDS: INSULIN GLARGINE 100 UNITS/ML 10 ML VIAL SQ SCH (20:18)
[2019-11-30] VITALS: BP 152/59
[2019-11-30] MEDS: MEROPENEM 500 MG VIAL IVP SCH ×2 (00:22→12:15)
[2019-11-30 04:00] VITALS: BP 153/70
[2019-11-30 04:08] LABS: CREATININE 1.8 mg/dL (0.5-1.5); POTASSIUM 4.4 mmol/L (3.5-5.1)
[2019-11-30] MEDS: INSULIN HUMULIN R 100 UNIT/ML 3ML SQ SCH ×4 (05:47→19:46)
[2019-11-30] MEDS: HYDROMORPHONE HCL 0.5 MG/0.5 ML ML IVP PRN ×3 (06:05→19:03)
[2019-11-30 06:09] LABS: BASOPHILS % (AUTO) 0.4 % (0.0-5.0); EOSINOPHILS % (AUTO) 4.5 % (0.0-8.0); HEMATOCRIT 26.1 % (36-48); LYMPHOCYTES % (AUTO) 16.2 % (21.0-51.0); MEAN CORPUSCULAR HEMOGLOBIN 29.6 pg (27.0-33.0); MEAN CORPUSCULAR HGB CONC 32.2 g/dL (32.0-36.0); MEAN CORPUSCULAR VOLUME 91.9 fL (79-99); MONOCYTES % (AUTO) 11.2 % (3.0-13.0); NEUTROPHILS % (AUTO) 63.2 % (40.0-77.0); PLATELET COUNT (AUTO) 266 K/uL (130-400); RED BLOOD CELL COUNT(AUTO) 2.84 MIL/uL (4.00-5.50); RED CELL DISTRIBUTION WIDTH 14.9 % (11.0-15.5); WHITE BLOOD COUNT (AUTO) 15.9 K/uL (4.8-10.8)
[2019-11-30 07:30] VITALS: BP 174/71
[2019-11-30] MEDS: POTASSIUM CHLORIDE 20 MEQ ERTAB PO SCH (08:07)
[2019-11-30] MEDS: DOCUSATE SODIUM 100 MG CAP PO SCH ×2 (10:57→19:42)
[2019-11-30] MEDS: BUMETANIDE 1 MG TAB PO SCH (10:57)
[2019-11-30] MEDS: FAMOTIDINE 20MG TAB 20 MG TAB PO SCH (10:57)
[2019-11-30] MEDS: METOPROLOL TARTRATE 25 MG TAB PO SCH (10:57)
[2019-11-30] MEDS: INSULIN LISPRO 100 UNIT/ML 3ML SQ SCH ×3 (10:58→19:13)
[2019-11-30 11:00] VITALS: BP 136/41
--- NOTE | 2019-11-30 13:41 | NUR ---
CM Note: WNR approval. CM spoke to Trudy goodson/SHAKIRA, received +covid result and new covid transfer form. Pt has approval. EMS arranged and faxed for today. Primary nurse to call [facility] once pt ready to DC. Primary nurse aware. CM to cont to follow up.
--- NOTE | 2019-11-30 14:45 | NUR ---
FAXED MED REC, CALLED FOR REPORT AND TO SEE IF ACCEPT W POSITIVE COVID CALLED FOUR TIMES WITH PLACED ON HOLD UNTIL SENT TO [facility] MESSAGE. SPOKE WITH [facility]SH[facility] AND SAID THEY HAD NO PAPERWORK ON PATIENT AND WOULD RECEIVE PT IF COVID POSITIVE; SHE PLACED ON HOLD AGAIN FOR LONG PERIOD OF TIME UNTIL CALL SENT TO [facility] AGAIN. NOTIFIED RERE. AGAIN CALLED AT 1545, SPOKE WITH ASHLY AND SHE SAID SHE HAS NOT TRANSFERRED CALL TO NURSE BECAUSE THERE IS NO PAPERWORK ON PATIENT. CALLED AND NOTIFIED JOY. JERNIGAN TO FOLLOWUP.
--- NOTE | 2019-11-30 16:24 | NUR ---
CALLED [facility] AGAIN ASHLY TRANSFERRED ME TO [facility], ADMISSION COORDINATOR. [facility] SAID THEY ARE "WAITING FOR TRANSFER FORM". CALLED AND NOTIFIED RERE, CASE MANAGEMENT.
[2019-11-30] MEDS: ATORVASTATIN CALCIUM 20 MG TABLET PO SCH (19:42)
[2019-11-30] MEDS: INSULIN GLARGINE 100 UNITS/ML 10 ML VIAL SQ SCH (19:49)
[2019-11-30 20:00] VITALS: BP 148/57
--- NOTE | 2019-11-30 21:45 | NUR ---
DISCHARGE DISCHARGE TO [facility] VIA EMS
== END 2019-11-30 21:45 | DRG 480 ==
LOC: EDH 15:12 → EDHIP 16:45 → 3BH 22:07
PROVIDERS: ADMIT Hospitalist; ATTEND Hospitalist
PROC: 0QS636Z Reposition Right Upper Femur with Intramedullary Internal Fixation Device, Percutaneous Approach (ICD-10-PCS; principal; 2019-11-24 13:51)
DX: S72.141A Displaced intertrochanteric fracture of right femur, initial encounter for closed fracture (principal); U07.1 COVID-19; N17.9 Acute kidney failure, unspecified; E87.0 Hyperosmolality and hypernatremia; N39.0 Urinary tract infection, site not specified; Z16.24 Resistance to multiple antibiotics; K21.9 Gastro-esophageal reflux disease without esophagitis; I25.10 Atherosclerotic heart disease of native coronary artery without angina pectoris; I16.0 Hypertensive urgency; N18.3 Chronic kidney disease, stage 3 (moderate); E11.22 Type 2 diabetes mellitus with diabetic chronic kidney disease; E11.65 Type 2 diabetes mellitus with hyperglycemia; D64.9 Anemia, unspecified; B96.20 Unspecified Escherichia coli [E. coli] as the cause of diseases classified elsewhere; E66.9 Obesity, unspecified; E78.5 Hyperlipidemia, unspecified; I12.9 Hypertensive chronic kidney disease with stage 1 through stage 4 chronic kidney disease, or unspecified chronic kidney disease; I25.5 Ischemic cardiomyopathy; Z79.4 Long term (current) use of insulin; Z82.49 Family history of ischemic heart disease and other diseases of the circulatory system; Z83.3 Family history of diabetes mellitus; Z95.1 Presence of aortocoronary bypass graft; Z95.3 Presence of xenogenic heart valve; Z96.653 Presence of artificial knee joint, bilateral; W18.30XA Fall on same level, unspecified, initial encounter; Y93.89 Activity, other specified; Y92.009 Unspecified place in unspecified non-institutional (private) residence as the place of occurrence of the external cause; Y99.8 Other external cause status; Z68.34 Body mass index [BMI] 34.0-34.9, adult
CPT/HCPCS: 36415; 70450; 71045; 72125; 73502; 73503; 76770; 80048; 80053; 81001; 82550; 82728; 82948; 83036; 83540; 83550; 83735; 84100; 84484; 84550; 85014; 85018; 85025; 85027; 85610; 85730; 86850; 86900; 86901; 86923; 87077; 87088; 87186; 92610; 93005; 97039; G0378; J0330; J0885; J1100; J1170; J1644; J1756; J1815; J2001; J2060; J2175; J2185; J2270; J2405; J2704; J2710; J3010; J3475; J3490; J7030; J7050; U0003